=== PATIENT | female | born 1955 | race Hispanic/Latino ===

== ENCOUNTER 2017-01-11 08:58 | Day surgery (SDC) | payer OTHER ==
[2017-01-11 09:36] VITALS: BMI 28.9
[2017-01-11] MEDS ORDERED: Propofol 10 mg/ml Inj (20 ML) ONE (10:38)
[2017-01-11] MEDS ORDERED: Midazolam 2 MG/2 ML VIAL ONE (10:38)
[2017-01-11] MEDS ORDERED: Lactated Ringer's 1,000 ML IV ONE (10:40)
[2017-01-11] MEDS ORDERED: Lidocaine 1% Inj (20ml) ONE (10:50)
--- NOTE | 2017-01-11 11:37 | PCM.SURG1 ---
Surgeon's Initial Post Op Note - Surgeon's Notes Surgeon: Dr. Voss Health And Safety Specialist: Dr. Mercedes PGY-1, Dr. Angulo PGY-2 Type of Anesthesia: IV Sedation Pre-Operative Diagnosis: lipoma of right lateral trapezius. Right lipoma inferior to right lateral malleolus Operative Findings: see operative report Post-Operative Diagnosis: see operative report Operation Performed: excision of right lipoma in lateral trapezius region. excision of right lipoma inferior to right lateral malleolus Specimen/Specimens Removed: lipoma x2 Estimated Blood Loss: EBL {In ML}: 10 Blood Products Given: N/A Drains Used: No Drains Post-Op Condition: Good Date of Surgery/Procedure: 01/11/17 Time of Surgery/Procedure: 10:30
[2017-01-11] MEDS ORDERED: Oxycodone/Acetaminophen 5/325 mg Tab PO PRN (11:41)
[2017-01-11] MEDS ORDERED: HYDROmorphone 0.5 mg/0.5 ml ISec IVP PRN (11:48)
[2017-01-11] MEDS ORDERED: Lactated Ringer's 1,000 ML IV SCH (12:00)
[2017-01-11 13:04] VITALS: BP 130/72; PULSE 88; RESP 18; TEMP 98.2; O2SAT 99
--- NOTE | 2017-01-12 11:29 | OP ---
PROCEDURE DATE: 01/11/2017 SURGEON: Svitlana Voss MD. CONTRACT ENGINEER: Dr. Mercedes and Dr. Angulo. ANESTHESIA: IV sedation, WALTER Rene. PREOPERATIVE DIAGNOSIS: Lipoma - right shoulder, lipoma - right ankle. POSTOPERATIVE DIAGNOSIS: Lipoma - right shoulder, lipoma - right ankle. PROCEDURE: Excision lipoma- right shoulder, and excision of lipoma - right ankle. DESCRIPTION OF OPERATION: With the patient in a lateral position, having received IV sedation, the m arked areas of the right shoulder and the right ankle were prepped and draped in the usual sterile ma nner. The patient was noted to have a large soft subcutaneous mass overlying the upper posterior por tion of the scapula, and the skin overlying this was infiltrated with 1% lidocaine. A transverse ski n incision was made and taken down through the full thickness of skin. When entering the subcutaneou s tissue, a slightly bulging yellow lobulated mass was noted, and this was bluntly freed from the brad rounding subcutaneous tissue and delivered up into the wound. Some loculations were noted in the jamir per muscular compartments surrounding the scapula ,and a few fibrous loculations were divided to allo w removal of the mass, which measured approximately 10 cm in its longest dimension. The operative si te was examined for hemostasis, and closure was performed with running subcuticular suture of 4-0 Mon ocryl and Steri-Strips. Attention was turned to the right ankle where a smaller soft subcutaneous mass was noted just superio r and posterior to the lateral malleolus. Skin overlying this was infiltrated with 1% lidocaine, and a number of firm lobulated fatty materials were removed from the subcutaneous layer surrounding the femoral nerve. The operative site was examined for hemostasis, and closure was performed with runnin g subcuticular suture of 4-0 Monocryl and Steri-Strips. Dry sterile dressings were applied. The pat ient tolerated the procedure well and transferred to recovery room in stable condition. Estimated blood loss for the procedure was 10 mL. Svitlana Voss MD cc: [id number] TT: 01/12/2017 11:29:00 jn
== END 2017-01-11 13:06 | disposition home or self-care (01) ==
LOC: C.SDS 08:58
PROVIDERS: ATTEND Specialist
DX: D17.1 Benign lipomatous neoplasm of skin and subcutaneous tissue of trunk (principal); D17.23 Benign lipomatous neoplasm of skin and subcutaneous tissue of right leg
CPT/HCPCS: 11402; 11404; 88304; J2250; J2704; J3010; J7120

== ENCOUNTER 2018-11-02 07:28 | Outpatient (CLI) | payer OTHER | END 2018-11-02 07:29 | disposition home or self-care (01) | LOC: C.LAB 07:28 | DX: Z00.01 Encounter for general adult medical examination with abnormal findings (principal); E03.9 Hypothyroidism, unspecified ==